=== PATIENT | female | born 1975 | race Two or more races ===

== ENCOUNTER 2016-07-04 06:06 | Emergency (ER) | payer BC ==
[~2016-07-04] VITALS: Ht 165.1 cm; Wt 48.5 kg
[2016-07-04] MEDS ORDERED: LIDOCAINE 2% JEL UROJET 10 ML MM ONE ×2 (06:23→06:30)
[2016-07-04 06:49] LABS: ADD UA MICROSCOPIC NO; KETONES,URINE NEGATIVE (NEGATIVE); LEUKOCYTE ESTERASE ,URINE NEGATIVE (NEGATIVE)
[2016-07-04 06:52] LABS: PREGNANCY TEST URINE QUAL NEGATIVE (NEGATIVE)
[2016-07-04 07:17] VITALS: BP 112/72
== END 2016-07-04 07:18 | disposition home or self-care (01) ==
LOC: ER 06:08
DX: R33.9 Retention of urine, unspecified (principal); Z88.0 Allergy status to penicillin; Z88.2 Allergy status to sulfonamides; Z88.8 Allergy status to other drugs, medicaments and biological substances
CPT/HCPCS: 51702; 81001; 84703; 87086; 99284; A4606; J3490; Z7610; 81000-TC